=== PATIENT | male | born 1995 ===

== ENCOUNTER 2019-10-31 09:44 | Outpatient (CLI) | payer OTHER, SELFPAY ==
[2019-10-31 09:59] LABS: Basophils Absolute Auto 0.05 K/mm3 (0.00-0.10); Basophils Percent Auto 0.9 % (0.0-1.0); Eosinophils Absolute Auto 0.34 K/mm3 (0.02-0.50); Eosinophils Percent Auto 6.4 % (1.0-6.0); Hemoglobin 15.2 g/dL (14.0-18.0); Immature Granulocyte Absolute 0.02 K/mm3 (0.00-0.00); Immature Granulocyte Percent A 0.4 % (0.0-0.0); Lymphocytes Absolute Auto 1.91 K/mm3 (1.10-4.50); Lymphocytes Percent Auto 35.8 % (18.0-42.0); Mean Corpuscular HGB Conc 33.8 g/dL (32.0-36.0); Mean Corpuscular Hemoglobin 29.8 pg (27.0-31.0); Mean Corpuscular Volume 88.2 fL (78.0-102.0); Mean Platelet Volume 11.4 fl (8.7-11.0); Monocytes Absolute Auto 0.47 K/mm3 (0.10-0.90); Monocytes Percent Auto 8.8 % (2.0-11.0); Neutrophils Absolute Auto 2.5 K/mm3 (1.7-7.2); Neutrophils Percent Auto 47.7 % (50.0-70.0); Platelet Count Result 165 K/mm3 (150-420); Red Cell Distribution Width 11.7 % (11.6-14.4); White Blood Count 5.3 K/mm3 (4.8-10.8)
[2019-11-06 17:20] LABS: H pylori Ag Stool Not Detected (Not Detected)
[2019-11-12 17:07] LABS: Calprotectin, Stool 15 mcg/g
[2019-11-22 16:20] LABS: Gliadin Gluten IgA 6
== END 2019-10-31 09:45 | disposition home or self-care (01) ==
PROVIDERS: PCP Family Medicine; Visit Provider Family Medicine
DX: K58.0 Irritable bowel syndrome with diarrhea (principal); R19.8 Other specified symptoms and signs involving the digestive system and abdomen
CPT/HCPCS: 36415; 83516; 83993; 85025; 87177; 87209; 87269; 87338